=== PATIENT | female | born 1960 | race Caucasian/White ===

== ENCOUNTER 2022-04-18 18:02 | Emergency (ER) | payer OTHER ==
[2022-04-18 18:38] VITALS: RESP 19; TEMP 98.1; BMI 24.3
[2022-04-18] MEDS ORDERED: ONDANSETRON 4 MG/2 ML VIAL IVPUSH ONE (18:46)
[2022-04-18] MEDS ORDERED: SODIUM CHLORIDE 0.9% 500 ML INFUS.BAG IV ONE ×2 (18:46→20:23)
[2022-04-18] MEDS ORDERED: ONDANSETRON 4 MG/2 ML VIAL ONE (19:28)
[2022-04-18 19:39] LABS: BASO % 0.7 % (0-2.0); EOS % 0.1 % (0-4.5); HEMATOCRIT 45.7 % (32.4-45.2); HEMOGLOBIN 15.5 GM/dL (10.7-15.3); LYMPH % 45.3 % (8-40); MCH 30.4 pg (25.7-33.7); MCHC 33.9 g/dl (32.0-36.0); MEAN CELL VOLUME 89.6 fl (80-96); MEAN PLT VOLUME 9.2 fl (7.5-11.1); MONO % 10.5 % (3.8-10.2); NEUT % 43.4 % (42.8-82.8); PLATELET COUNT 313 10^3/uL (134-434); WHITE BLOOD COUNT 4.7 K/mm3 (4.0-10.0)
[2022-04-18 19:55] LABS: ALBUMIN 4.1 g/dl (3.4-5.0); BLOOD UREA NITROGEN 29.9 mg/dL (7-18)
[2022-04-18 19:58] LABS: CREATININE 1.1 mg/dL (0.55-1.3)
[2022-04-18 19:59] LABS: BILIRUBIN,TOTAL 0.6 mg/dL (0.2-1); TOT PROT 7.6 g/dl (6.4-8.2)
[2022-04-18 21:40] LABS: EPI CELLS 31 /uL (0-25.1); HYALINE CASTS 0 /uL (0-3.1); URINE APPEARANCE CLEAR; URINE BACTERIA 327 /uL (0-1359); URINE BILIRUBIN NEGATIVE (NEGATIVE); URINE COLOR YELLOW; URINE GLUCOSE (UA) NEGATIVE (NEGATIVE); URINE KETONE 1+ (NEGATIVE); URINE LEUK ESTERASE 1+ (NEGATIVE); URINE NITRITE NEGATIVE (NEGATIVE); URINE PROTEIN NEGATIVE (NEGATIVE); URINE RBC 3 /uL (0-23.9); URINE UROBILINOGEN 0.2 mg/dL (0.2-1.0); URINE WBC 60 /uL (0-25.8)
[2022-04-18 22:16] VITALS: BP 159/90; PULSE 88
== END 2022-04-18 23:19 | disposition home or self-care (01) ==
LOC: JER 18:02
PROC: 3E033GC Introduction of Other Therapeutic Substance into Peripheral Vein, Percutaneous Approach (ICD-10-PCS; principal; 2022-04-18)
DX: U07.1 COVID-19 (principal); R11.2 Nausea with vomiting, unspecified; R19.7 Diarrhea, unspecified
CPT/HCPCS: 36415; 80053; 81003; 84484; 85025; 93005; 93010; 96374; 99284-25